=== PATIENT | female | born 1970 ===

== ENCOUNTER 2016-12-21 22:07 | Emergency (ER) | payer SELFPAY ==
[2016-12-21 22:07] VITALS: BMI 28.3
[2016-12-21 22:54] VITALS: BP 133/79; PULSE 67; RESP 18; TEMP 98.5; O2SAT 98
[2016-12-21] MEDS ORDERED: Sodium Chloride 0.9% 1,000 ML IV STA (23:15)
--- NOTE | 2016-12-21 23:18 | ED PDOC ---
HPI: Headache Time Seen by Provider: 12/21/16 23:05 Chief Complaint (Nursing): Headache Chief Complaint (Provider): headache History Per: Patient History/Exam Limitations: no limitations Onset/Duration Of Symptoms: Days (6) Current Symptoms Are (Timing): Still Present Quality: Aching, "Pain" Associated Symptoms: denies: Photophobia, Blurred Vision, Nausea, Vomiting, Extremity Weakness Additional History Per: Patient Additional Complaint(s): 46 y/o female presents with right sided headache x 6 days. Denies fever, nausea /vomiting, vision changes, extremity numbness/weakness, chest pain, shortness of breath, neck pain. Little relief with Advil, last taken 15:00. Past Medical History Reviewed: Historical Data, Nursing Documentation, Vital Signs Vital Signs: Last Vital Signs Temp 98.5 F 12/21/16 22:49 Pulse 67 12/21/16 22:49 Resp 18 12/21/16 22:49 BP 133/79 12/21/16 22:49 Pulse Ox 98 12/21/16 22:49 - Medical History PMH: Diabetes Denies: Chronic Kidney Disease - Surgical History Surgical History: No Surg Hx - Family History Family History: States: Unknown Family Hx - Home Medications Home Medications: Ambulatory Orders Medication Instructions Recorded Cephalexin [Keflex] 500 mg PO TID 02/17/16 oxyCODONE/Acetaminophen [Percocet 5 - 325 mg PO Q4 PRN 02/17/16 5/325 mg Tab] Acetaminophen/Butalbital/Caf 1 tab PO Q6 PRN #10 tab 12/22/16 [Fioricet] - Allergies Allergies/Adverse Reactions: Allergies Allergy/AdvReac Type Severity Reaction Status Date / Time No Known Allergies Allergy Verified 08/02/15 19:04 Review of Systems ROS Statement: Except As Marked, All Systems Reviewed And Found Negative Neurological: Positive for: Headache Physical Exam - Reviewed Nursing Documentation Reviewed: Yes Vital Signs Reviewed: Yes - Physical Exam Appears: Positive for: Well, Non-toxic, No Acute Distress Head Exam: Positive for: ATRAUMATIC, NORMAL INSPECTION, NORMOCEPHALIC Skin: Positive for: Normal Color Eye Exam: Positive for: Normal appearance, EOMI, PERRL ENT: Positive for: Normal ENT Inspection Cardiovascular/Chest: Positive for: Regular Rate, Rhythm Respiratory: Positive for: Normal Breath Sounds Gastrointestinal/Abdominal: Positive for: Normal Exam Back: Positive for: Normal Inspection Extremity: Positive for: Normal ROM Neurologic/Psych: Positive for: Alert, Oriented - Laboratory Results Result Diagrams: 12/21/16 23:49 12/21/16 23:49 - ECG O2 Sat by Pulse Oximetry: 98 - Progress ED Course And Treament: labs, CT head, IV fluids, PO tylenol EXAM: CT Head Without Intravenous Contrast CLINICAL HISTORY: 46 years old, female; Pain; Headache TECHNIQUE: Axial computed tomography images of the head/brain without intravenous contrast. This CT exam was performed using one or more of the following dose reduction techniques: automated exposure control, adjustment of the mA and/or kV according to patient size, and/or use of iterative reconstruction technique. Coronal and sagittal reformatted images were created and reviewed. COMPARISON: No relevant prior studies available. FINDINGS: Brain: No acute intracranial hemorrhage. No significant white matter disease. No edema. Basal ganglia calcifications are present. Ventricles: No significant ventriculomegaly. Bones: No acute displaced fracture. Sinuses: Unremarkable as visualized. No acute sinusitis. Mastoid air cells: Unremarkable as visualized. No mastoid effusion. IMPRESSION: No acute intracranial hemorrhage, or suspicious mass effect. Basal ganglia mineralization is prominent considering the patient's age. Still, this may be physiologic. Other considerations are prior infection, thyroid/parathyroid disease or inherited metabolic conditions On re-eval, patient notes headache slightly improved; IV toradol ordered 2:00 Patient states headache resolved. Patient educated on findings, discharged with rx fioricet. Advised follow up PMD 2-3 days. Return to Ed for worsening/concerning symptoms. Disposition - Clinical Impression Clinical Impression: Headache - Patient ED Disposition Is Patient to be Admitted: No Counseled Patient/Family Regarding: Studies Performed, Diagnosis, Need For Followup, Rx Given - Disposition Disposition: Routine/Home Disposition Time: 01:31 Condition: IMPROVED Prescriptions: Acetaminophen/Butalbital/Caf [Fioricet] 1 tab PO Q6 PRN #10 tab PRN Reason: Headache Instructions: Acute Headache (ED) Print Language: BELIZEAN
--- NOTE | 2016-12-21 23:48 | CT ---
EXAM: CT Head Without Intravenous Contrast CLINICAL HISTORY: 46 years old, female; Pain; Headache TECHNIQUE: Axial computed tomography images of the head/brain without intravenous contrast. This CT exam was performed using one or more of the following dose reduction techniques: automated exposure control, adjustment of the mA and/or kV according to patient size, and/or use of iterative reconstruction technique. Coronal and sagittal reformatted images were created and reviewed. COMPARISON: No relevant prior studies available. FINDINGS: Brain: No acute intracranial hemorrhage. No significant white matter disease. No edema. Basal ganglia calcifications are present. Ventricles: No significant ventriculomegaly. Bones: No acute displaced fracture. Sinuses: Unremarkable as visualized. No acute sinusitis. Mastoid air cells: Unremarkable as visualized. No mastoid effusion. IMPRESSION: No acute intracranial hemorrhage, or suspicious mass effect. Basal ganglia mineralization is prominent considering the patient's age. Still, this may be physiologic. Other considerations are prior infection, thyroid/parathyroid disease or inherited metabolic conditions.
[2016-12-21 23:54] LABS: BASO % 0.4 % (0.0-2.0); EOS # 0.1 K/uL (0.0-0.7); EOS % 1.9 % (0.0-4.0); HEMOGLOBIN 12.2 g/dL (12.0-16.0); LYMPH # 1.6 K/uL (1.0-4.3); LYMPH % 35.1 % (20.0-40.0); MEAN CORPUSCULAR HEMOGLOBIN 29.7 pg (27.0-31.0); MEAN CORPUSCULAR HGB CONC 33.7 g/dL (33.0-37.0); MEAN PLATELET VOLUME 8.4 fl (7.2-11.7); MONO # 0.5 K/uL (0.0-0.8); MONO % 10.9 % (0.0-10.0); NEUT # 2.4 K/uL (1.8-7.0); NEUT % 51.7 % (50.0-75.0); NRBC % 0.1 % (0.0-0.0); RBC 4.12 Mil/uL (3.80-5.20); WHITE BLOOD COUNT 4.7 K/uL (4.8-10.8)
[2016-12-21 23:56] LABS: MEAN CELL VOLUME 88.1 fl (81.0-99.0)
[2016-12-22 00:06] LABS: ALB/GLOB RATIO 1.2 (1.0-2.1); ALBUMIN 3.7 g/dL (3.5-5.0); ALT/SGPT 31 U/L (9-52); AST/SGOT 21 U/L (14-36); BLOOD UREA NITROGEN 17 mg/dl (7-17); CALCIUM 8.7 mg/dL (8.4-10.2); GFR AFRICAN-AMERICAN > 60; GFR NON-AFRICAN AMERICAN > 60
== END 2016-12-22 02:27 | disposition home or self-care (01) ==
LOC: H.ER 22:07
DX: R51 Headache (principal); E11.9 Type 2 diabetes mellitus without complications

== ENCOUNTER 2018-06-02 15:12 | Emergency (ER) | payer SELFPAY ==
[2018-06-02 15:12] VITALS: BMI 28.3
[2018-06-02 15:18] VITALS: TEMP 98
--- NOTE | 2018-06-02 15:47 | ED PDOC ---
HPI: Abdomen Time Seen by Provider: 06/02/18 15:29 Chief Complaint (Nursing): Abdominal Pain Chief Complaint (Provider): Abdominal pain History Per: Patient Additional Complaint(s): 47 yo female, PMH of DM , presents to ED for evaluation of left sided flank pain x 1 day. No fever or chills. no vomiting but intermittent nausea Past Medical History Reviewed: Nursing Documentation, Vital Signs Vital Signs: Last Vital Signs Temp 98 F 06/02/18 15:16 Pulse 98 H 06/02/18 15:16 Resp 20 06/02/18 15:16 BP 189/104 H 06/02/18 15:16 Pulse Ox 98 06/02/18 15:16 - Medical History PMH: Diabetes Denies: Chronic Kidney Disease - Family History Family History: States: Unknown Family Hx - Living Arrangements Living Arrangements: With Family - Social History Current smoker - smoking cessation education provided: No Alcohol: None Drugs: Denies - Home Medications Home Medications: Ambulatory Orders Medication Instructions Recorded Cephalexin [Keflex] 500 mg PO TID 02/17/16 oxyCODONE/Acetaminophen [Percocet 5 - 325 mg PO Q4 PRN 02/17/16 5/325 mg Tab] Acetaminophen/Butalbital/Caf 1 tab PO Q6 PRN #10 tab 12/22/16 [Fioricet] - Allergies Allergies/Adverse Reactions: Allergies Allergy/AdvReac Type Severity Reaction Status Date / Time No Known Allergies Allergy Verified 06/02/18 15:15 Review of Systems ROS Statement: Except As Marked, All Systems Reviewed And Found Negative Gastrointestinal: Positive for: Abdominal Pain Physical Exam - Reviewed Nursing Documentation Reviewed: Yes Vital Signs Reviewed: Yes - Physical Exam Appears: Positive for: Non-toxic, No Acute Distress, Uncomfortable Head Exam: Positive for: ATRAUMATIC, NORMAL INSPECTION, NORMOCEPHALIC Skin: Positive for: Normal Color, Warm, DRY Eye Exam: Positive for: EOMI, Normal appearance, PERRL ENT: Positive for: Normal ENT Inspection Neck: Positive for: Normal, Painless ROM Cardiovascular/Chest: Positive for: Regular Rate, Rhythm Respiratory: Positive for: CNT, Normal Breath Sounds Gastrointestinal/Abdominal: Positive for: Soft, Tenderness Back: Positive for: Normal Inspection Extremity: Positive for: Normal ROM Neurologic/Psych: Positive for: Alert, Oriented - Laboratory Results Result Diagrams: 06/02/18 16:28 06/02/18 16:28 - ECG O2 Sat by Pulse Oximetry: 98 Medical Decision Making Medical Decision Making: Case endorsed to EDMOND Mccormick at 2000 pending diagnostic review nd re-eval Disposition - Clinical Impression Clinical Impression: Flank pain - Patient ED Disposition Is Patient to be Admitted: Transfer of Care - Disposition Disposition: Transfer of Care Disposition Time: 19:57 Condition: STABLE Forms: [employer] ([place]ese)
[2018-06-02] MEDS ORDERED: Sodium Chloride 0.9% 1,000 ML IV STA (15:59)
[2018-06-02 16:31] LABS: HEMOGLOBIN 14.1 g/dL (12.0-16.0); MEAN CELL VOLUME 89.3 fl (81.0-99.0); MEAN CORPUSCULAR HEMOGLOBIN 30.4 pg (27.0-31.0); RBC 4.63 Mil/uL (3.80-5.20); RED CELL DISTRIBUTION WIDTH 13.5 % (11.5-14.5); WHITE BLOOD COUNT 9.5 K/uL (4.8-10.8)
[2018-06-02 16:37] LABS: SQUAMOUS EPITHIAL 3 /hpf (0-5); URINE BACTERIA RARE (<OCC); URINE BILIRUBIN NEGATIVE (NEGATIVE); URINE BLOOD LARGE (NEGATIVE); URINE CLARITY SLIGHTY-CLOUDY (Clear); URINE COLOR YELLOW (YELLOW); URINE GLUCOSE (UA) NEG (NEGATIVE); URINE LEUKOCYTE ESTERASE NEG Leu/uL (Negative); URINE PROTEIN 30 mg/dL (NEGATIVE); URINE UROBILINOGEN 0.2-1.0 mg/dL (0.2-1.0)
[2018-06-02 16:40] LABS: ALB/GLOB RATIO 1.2 (1.0-2.1); ALBUMIN 4.3 g/dL (3.5-5.0); ALT/SGPT 37 U/L (9-52); AST/SGOT 31 U/L (14-36); BLOOD UREA NITROGEN 21 mg/dl (7-17); CALCIUM 9.2 mg/dL (8.4-10.2); GFR NON-AFRICAN AMERICAN > 60
[2018-06-02] MEDS ORDERED: Morphine 4 MG/ML VIAL IV ONE ×2 (17:24→20:30)
[2018-06-02] MEDS ORDERED: Morphine 4 MG/ML VIAL ONE ×2 (17:30→20:11)
[2018-06-02 20:44] VITALS: BP 120/81; PULSE 75; RESP 20; O2SAT 100
--- NOTE | 2018-06-03 09:28 | CT ---
Date of service: 06/02/2018 PROCEDURE: CT Abdomen and Pelvis without intravenous contrast HISTORY: r flan pain COMPARISON: None. TECHNIQUE: Contiguous images were obtained from the domes of the diaphragms to the upper thighs without the administration of intravenous contrast. Oral contrast was not administered. Radiation dose: Total exam DLP = 790.23 mGy-cm. This CT exam was performed using one or more of the following dose reduction techniques: Automated exposure control, adjustment of the mA and/or kV according to patient size, and/or use of iterative reconstruction technique. FINDINGS: LOWER THORAX: Unremarkable. LIVER: Unremarkable. No gross lesion or ductal dilatation. GALLBLADDER AND BILE DUCTS: Unremarkable. PANCREAS: Unremarkable. No gross lesion or ductal dilatation. SPLEEN: Unremarkable. ADRENALS: Unremarkable. No mass. KIDNEYS AND URETERS: 4 mm obstructive left ureterovesicular junction calculus, most of which is in the bladder, and causes moderate hydroureteronephrosis. Additional punctate nonobstructive left lower pole calculus. No solid mass. VASCULATURE: Unremarkable. No aortic aneurysm. No aortic atherosclerotic calcification or mural plaque present. BOWEL: Colonic diverticulosis. No obstruction. No gross mural thickening. APPENDIX: Unremarkable. Normal appendix. PERITONEUM: Unremarkable. No free fluid. No free air. LYMPH NODES: Unremarkable. No enlarged lymph nodes. BLADDER: Unremarkable. REPRODUCTIVE: Small left ovarian cysts. BONES: Multilevel spinal degenerative changes multilevel disc herniations. No acute fracture. OTHER FINDINGS: None. IMPRESSION: Moderate left hydroureteronephrosis secondary to obstructive 4 mm left ureterovesicular junction calculus. Much of the calculus is already within the bladder and is likely soon to pass.
== END 2018-06-02 20:42 | disposition home or self-care (01) ==
LOC: H.ER 15:12
DX: R10.9 Unspecified abdominal pain (principal)
CPT/HCPCS: 74176; 80053; 81003; 81025; 85027; 96361; 96374; 96375; 96376; 99284; J1885; J2270; J2405; J7030

== ENCOUNTER 2018-07-13 19:53 | Emergency (ER) | payer SELFPAY ==
[2018-07-13 19:54] VITALS: BMI 28.3
[2018-07-13 19:59] VITALS: O2SAT 99
[2018-07-13] MEDS ORDERED: Sodium Chloride 0.9% 1,000 ML IV STA ×2 (20:47→23:40)
--- NOTE | 2018-07-13 20:54 | ED PDOC ---
HPI: General Adult Time Seen by Provider: 07/13/18 20:30 Chief Complaint (Nursing): Abdominal Pain Chief Complaint (Provider): Abdominal Pain History Per: Patient History/Exam Limitations: no limitations Onset/Duration Of Symptoms: Days (x2) Current Symptoms Are (Timing): Still Present Additional Complaint(s): 47 year old female with no significant past medical history presents to the ED with x2 days of abdominal pain, headache, body aches, and nausea. Patient repor ts pain radiates the most to her back. Patient denies any fever, urinary symptoms or any other medical complaints. Patient took Tylenol with no relief. PMD: Hever Past Medical History Reviewed: Historical Data, Nursing Documentation, Vital Signs Vital Signs: Last Vital Signs Temp 97.9 F 07/13/18 19:56 Pulse 89 07/13/18 19:56 Resp 16 07/13/18 19:56 BP 120/80 07/13/18 19:56 Pulse Ox 99 07/13/18 19:56 - Medical History PMH: Diabetes Denies: Chronic Kidney Disease - Family History Family History: States: Unknown Family Hx - Home Medications Home Medications: Ambulatory Orders Medication Instructions Recorded Cephalexin [Keflex] 500 mg PO TID 02/17/16 oxyCODONE/Acetaminophen [Percocet 5 - 325 mg PO Q4 PRN 02/17/16 5/325 mg Tab] Acetaminophen/Butalbital/Caf 1 tab PO Q6 PRN #10 tab 12/22/16 [Fioricet] Ciprofloxacin [Cipro] 500 mg PO BID #14 tab 06/02/18 Ibuprofen [Motrin] 600 mg PO Q6 #20 tab 06/02/18 Tamsulosin [Flomax] 0.4 mg PO DAILY #10 cap 06/02/18 oxyCODONE/Acetaminophen [Percocet 1 ea PO Q6 PRN #5 tab 06/02/18 5/325 mg Tab] Oseltamivir Phosphate [Tamiflu] 75 mg PO BID #9 capsule 07/14/18 - Allergies Allergies/Adverse Reactions: Allergies Allergy/AdvReac Type Severity Reaction Status Date / Time No Known Allergies Allergy Verified 07/13/18 19:55 Review of Systems ROS Statement: Except As Marked, All Systems Reviewed And Found Negative Constitutional: Negative for: Fever Gastrointestinal: Positive for: Nausea, Abdominal Pain Genitourinary Female: Negative for: Dysuria, Hematuria Neurological: Positive for: Headache Physical Exam - Reviewed Nursing Documentation Reviewed: Yes Vital Signs Reviewed: Yes - Physical Exam Appears: Positive for: Non-toxic, No Acute Distress Head Exam: Positive for: ATRAUMATIC, NORMOCEPHALIC Skin: Positive for: Normal Color, Warm, Dry Eye Exam: Positive for: EOMI, Normal appearance, PERRL ENT: Positive for: Normal ENT Inspection Neck: Positive for: Normal Cardiovascular/Chest: Positive for: Regular Rate, Rhythm. Negative for: Murmur Respiratory: Positive for: Normal Breath Sounds. Negative for: Respiratory Distress Gastrointestinal/Abdominal: Positive for: Soft, Tenderness (epigastric tenderness). Negative for: Guarding, Rebound Back: Positive for: Normal Inspection Extremity: Positive for: Normal ROM (upper and lower). Negative for: Pedal Edema, Deformity Neurologic/Psych: Positive for: Alert, Oriented (x3) - Laboratory Results Result Diagrams: 07/13/18 22:50 07/13/18 22:50 - ECG O2 Sat by Pulse Oximetry: 99 (RA) Pulse Ox Interpretation: Normal Medical Decision Making Medical Decision Making: Time: 2045 Workup for viral syndrome vs influenza. Will treat for flu in window. Symptoms consistent with influenza. Time: 319 --Upon provider reevaluation, patient is medically stable, reports improvement in symptoms, and requires no further treatment in the ED at this time. Most likely viral syndrome. Patient received first dose of Tamiflu in ED then discharged home with full prescription. Advised to follow up in outpatient clinic. Counseling was provided and all questions were answered regarding diagnosis. There is agreement to discharge plan. Return precautions discussed. Clinical Impression: Influenza Scribe Attestation: Documented by Herlinda Mckeon and Verónica Guillen, acting as scribes for Gaviota Mcgrath MD. Provider Scribe Attestation: All medical record entries made by the Scribe were at my direction and personally dictated by me. I have reviewed the chart and agree that the record accurately reflects my personal performance of the history, physical exam, medical decision making, and the department course for this patient. I have also personally directed, reviewed, and agree with the discharge instructions and disposition. Disposition - Clinical Impression Clinical Impression: Influenza - Patient ED Disposition Is Patient to be Admitted: No Counseled Patient/Family Regarding: Studies Performed, Diagnosis, Need For Followup, Rx Given - Disposition Referrals: [facility] [Outside] Disposition: Routine/Home Disposition Time: 03:20 Condition: IMPROVED Additional Instructions: Take Tamiflu twice per day for 5 days. Increase rest and drink plenty of water while symptoms last. Follow up with primary medical doctor or outpatient clinic. Prescriptions: Oseltamivir Phosphate [Tamiflu] 75 mg PO BID #9 capsule Instructions: Flu, Adult (DC) Forms: [employer] (Salvadorean), [employer] (Mauritanian) Print Language: LAO
[2018-07-13 23:09] LABS: BASO % 0.5 % (0.0-2.0); EOS # 0.1 K/uL (0.0-0.7); LYMPH # 1.7 K/uL (1.0-4.3); LYMPH % 36.8 % (20.0-40.0); MEAN CELL VOLUME 89.9 fl (81.0-99.0); MEAN CORPUSCULAR HEMOGLOBIN 29.7 pg (27.0-31.0); MEAN PLATELET VOLUME 9.2 fl (7.2-11.7); MONO # 0.5 K/uL (0.0-0.8); MONO % 10.5 % (0.0-10.0); NEUT # 2.4 K/uL (1.8-7.0); NEUT % 50.2 % (50.0-75.0); RBC 4.37 Mil/uL (3.80-5.20); RED CELL DISTRIBUTION WIDTH 13.1 % (11.5-14.5); WHITE BLOOD COUNT 4.7 K/uL (4.8-10.8)
[2018-07-13 23:11] LABS: ALB/GLOB RATIO 1.2 (1.0-2.1); ALBUMIN 4.1 g/dL (3.5-5.0); ALT/SGPT 33 U/L (9-52); AST/SGOT 25 U/L (14-36); BLOOD UREA NITROGEN 14 mg/dl (7-17); CALCIUM 9.3 mg/dL (8.4-10.2); GFR NON-AFRICAN AMERICAN > 60
[2018-07-13] MEDS ORDERED: Alum-Mag Hydrox-Simethicone Susp (30 mL) PO ONE (23:41)
[2018-07-14] MEDS ORDERED: Alum-Mag Hydrox-Simethicone Susp (30 mL) ONE (00:13)
[2018-07-14 03:46] VITALS: BP 107/70; PULSE 79; RESP 18; TEMP 98.4
== END 2018-07-14 03:45 | disposition home or self-care (01) ==
LOC: H.ER 19:53
DX: J11.1 Influenza due to unidentified influenza virus with other respiratory manifestations (principal); E11.9 Type 2 diabetes mellitus without complications
CPT/HCPCS: 80053; 81025; 85025; 96361; 96374; 96375; 99284; J1885; J2405; J2765; J7030